=== PATIENT | male | born 1985 ===

== ENCOUNTER 2018-06-17 10:27 | Emergency (ER) | payer SELFPAY ==
[2018-06-17 10:43] VITALS: BP 137/65; PULSE 73; RESP 18; TEMP 98.1; O2SAT 96
--- NOTE | 2018-06-17 11:18 | C.PDOC ---
History Of Present Illness 33 year old male with a past medical history significant for scabies presents with complaints of a pruritic rash that started on Friday night. The rash started on his left lateral neck, spread to his right axilla and then became generalized. He has not used any modalities to treat his symptoms. The itch is worse at night. Patient stated that Friday he worse an old turtle neck that had been in storage for an unknown period of time. He denies any new detergents, lotions, soaps, or bodywashes. ROS POSITIVES: Pruritic Rash NEGATIVES: Fever, chills, headache, chest pain, palpitations, SOB, abdominal pain, n/v, changes in bowel habits, urinary symptoms. PMHx: Scabies PSHx: None Allergies: NKDA SocialHx: Former smoker 1pack per week smoker for 20 years; quit 1month ago, social EtoH Use, denies illicit drug use Meds: Multivitamins. <Daniela Unger - Last Filed: 06/17/18 13:06> History Per: Patient <Daniela Unger - Last Filed: 06/17/18 13:06> <Tim Casillas - Last Filed: 06/17/18 13:33> Time Seen by Provider: 06/17/18 11:01 Chief Complaint (Nursing): Abnormal Skin Integrity Past Medical History Reviewed: Nursing Documentation, Vital Signs Vital Signs: Last Vital Signs Temp 98.1 F 06/17/18 10:38 Pulse 73 06/17/18 10:38 Resp 18 06/17/18 10:38 BP 137/65 06/17/18 10:38 Pulse Ox 96 06/17/18 10:38 - [facility] Procedures APPLICATION OF SPLINT (04/05/14) CL REDUC DISLOC-HAND/FNG (01/09/00) CLOSURE SKIN & SUBCUTANEOUS NEC (10/03/01) OTHER CAST APPLICATION (11/12/02) Family History: States: Unknown Family Hx - Social History Hx Tobacco Use: Yes Hx Alcohol Use: No Hx Substance Use: No - Immunization History Hx Tetanus Toxoid Vaccination: No Hx Influenza Vaccination: No <Daniela Unger - Last Filed: 06/17/18 13:06> Vital Signs: Last Vital Signs Temp 98.1 F 06/17/18 10:38 Pulse 73 06/17/18 10:38 Resp 18 06/17/18 10:38 BP 137/65 06/17/18 10:38 Pulse Ox 96 06/17/18 13:07 - [facility] APPLICATION OF SPLINT (04/05/14) CL REDUC DISLOC-HAND/FNG (01/09/00) CLOSURE SKIN & SUBCUTANEOUS NEC (10/03/01) OTHER CAST APPLICATION (11/12/02) <Tim Casillas - Last Filed: 06/17/18 13:33> Review Of Systems Except As Marked, All Systems Reviewed And Found Negative. (As per HPI) <Daniela Unger - Last Filed: 06/17/18 13:06> Physical Exam - Physical Exam Appears: Well, Non-toxic, No Acute Distress Skin: Other (Generalized erythematous maculopapular rash in linear patterns. ) Head: Atraumatic, Normacephalic Eye(s): bilateral: EOMI Nose: Normal Tongue: Normal Appearing Lips: Normal Appearing Throat: Normal, No Erythema, No Exudate Neck: Normal Lymphatic: Normal Exam, No Adenopathy Cardiovascular: Rhythm Regular, No Edema, No Friction Rub, No Murmur, No JVD Respiratory: Normal Breath Sounds, No Rales, No Rhonchi, No Stridor Gastrointestinal/Abdominal: Soft, No Tenderness, No Mass, No Distention, No Guarding, No Rebound Back: No Normal Inspection (See Skin) Extremity: No Pedal Edema Neurological/Psych: Oriented x3, Normal Speech, Normal Cognition <Daniela Unger - Last Filed: 06/17/18 13:06> ED Course And Treatment O2 Sat by Pulse Oximetry: 96 <Daniela Unger - Last Filed: 06/17/18 13:06> Medical Decision Making Medical Decision Making: Scabies Will give one dose of Benadryl 25mg Will send home with prescription for Benadryl and Permethrin. Patient instructed to follow up at [facility] in 14 days. <Daniela Unger - Last Filed: 06/17/18 13:06> Disposition Counseled Patient/Family Regarding: Diagnosis, Need For Followup, Rx Given - Disposition Disposition Time: 11:37 - POA Present On Arrival: None <Daniela Unger - Last Filed: 06/17/18 13:06> <Tim Casillas - Last Filed: 06/17/18 13:33> - Disposition Referrals: [facility] [Outside] Disposition: HOME/ ROUTINE Condition: STABLE Prescriptions: DiphenhydrAMINE [Benadryl] 25 mg PO Q6H PRN 14 Days #56 cap PRN Reason: Itching / Pruritus Permethrin 5% [Permethrin 5% Cream] 60 gm EXT ONCE #1 tube Instructions: Scabies (DC) Forms: Offerial (Kazakh) - Clinical Impression Clinical Impression: Scabies - PA / [facility] / Resident Statement MD/DO has examined the patient and agrees with the treatment plan. - Scribe Statement The provider has reviewed the documentation as recorded by the Scribe (33 yr old male w/ hx of scabies p/w similiar complaints of skin rash. Scabies like rash noted on chest. No crepitus noted. Mildly erythematous.) <Tim Casillas - Last Filed: 06/17/18 13:33>
== END 2018-06-17 11:49 | disposition home or self-care (01) ==
LOC: C.ER 10:27
DX: B86 Scabies (principal)